=== PATIENT | male | born 1940 | race Caucasian/White ===

== ENCOUNTER → 2025-06-01 08:15 | Outpatient (REF) | payer OTHER, SELFPAY | LOC: MRI 3T 08:15 | PROVIDERS: ATTENDING PHYSICIAN Psychiatry & Neurology Neurology; FAMILY PHYSICIAN Family Medicine | DX: R51.9 Headache, unspecified (principal); C90.01 Multiple myeloma in remission; G44.89 Other headache syndrome | CPT/HCPCS: 70553; A9575 ==